=== PATIENT | male | born 1995 | race African-American/Black ===

== ENCOUNTER 2021-11-09 21:19 | Emergency (ER) | payer MEDICAID ==
[2021-11-09] MEDS: diphenhydrAMINE 25 MG CAPSULE PO STA ×2 (21:36→21:56)
[2021-11-09] MEDS: predniSONE 20 MG TABLET PO STA ×2 (21:36→21:57)
[2021-11-09] MEDS ORDERED: diphenhydrAMINE INJ 50 MG/ML VIAL IM STA (21:55)
[2021-11-09] MEDS ORDERED: DEXAMETHASONE 10 MG/ML VIAL IM STA (21:55)
--- NOTE | 2021-11-09 21:57 | ED Physician Documentation ---
History of Present Illness - Stated complaint Stated Complaint: ALLERGIC REACTION - Chief complaint Chief Complaint: Allergic Rx - History obtained from History obtained from: Patient - Additonal information Additional information: The patient comes to the emergency department chief complaint of his tongue being swollen. He states its been about an hour. He thinks he might of been exposed to nuts, to which she is allergic. No rash or itching. No throat swelling. No facial swelling. No other allergies that the patient knows of. No other complaints at this time. Review of Systems Ten Systems: 10 systems reviewed and negative Constitutional: reports: Reviewed and negative Eyes: reports: Reviewed and negative Ears: reports: Reviewed and negative Nose: reports: Reviewed and negative Throat: reports: Reviewed and negative Cardiac: reports: Reviewed and negative Respiratory: reports: Reviewed and negative GI: reports: Reviewed and negative : reports: Reviewed and negative Skin: reports: Reviewed and negative Musculoskeletal: reports: Reviewed and negative Neurologic: reports: Reviewed and negative Psychiatric: reports: Reviewed and negative Endocrine: reports: Reviewed and negative Immunocompromised: reports: Reviewed and negative PD PAST MEDICAL HISTORY - Allergies Allergies/Adverse Reactions: Allergies Allergy/AdvReac Type Severity Reaction Status Date / Time No Known Drug Allergies Allergy Verified 11/09/21 21:29 PD ED PE NORMAL - Vitals Vital signs reviewed: Yes - General General: No acute distress, Well developed/nourished, Other (Alert) - HEENT HEENT: Atraumatic, PERRL, EOMI, Moist mucous membranes, Pharynx benign (No edema, tonsils 1+ And symmetrical.), Other (No discernible tongue swelling. The patient when talking causes his tongue to protrude from his mouth, but otherwise, Tongue is retracted into the mouth and patient breathes comfortably.) - Neck Neck: Supple, no meningeal sign - Cardiac Cardiac: RRR, No murmur, Strong equal pulses - Respiratory Respiratory: No respiratory distress, Clear bilaterally, Other (No stridor) - Abdomen Abdomen: Soft, Non tender, Non distended - Derm Derm: Normal color, Warm and dry, No rash - Extremities Extremities: No deformity, No edema - Neuro Neuro: Alert and oriented X 3 - Psych Psych: Normal mood, Normal affect Results - Vitals Vitals: Vital Signs - 24 hr 11/09/21 11/09/21 11/09/21 21:27 22:13 22:43 Temperature 36.5 C Heart Rate 93 78 77 Respiratory 18 24 16 Rate Blood Pressure 136/82 H 135/83 H 112/65 O2 Saturation 97 95 94 11/09/21 22:58 Temperature 36.5 C Heart Rate 73 Respiratory 23 Rate Blood Pressure 112/65 O2 Saturation 96 Oxygen O2 Source Room air PD MEDICAL DECISION MAKING - ED course Complexity details: considered differential, d/w patient ED course: The patient was treated with Benadryl and Decadron and no development of any other symptoms was noted. The patient has some cognitive delay, and it was unclear to what extent this was playing in. His tongue did not appear edematous, nor did his throat. He had no facial swelling and no urticaria. His lungs were clear without wheezing. We have discussed the need to avoid any substances to which the patient is allergic. We have discussed the usual indications for return. Departure - Departure Disposition: 01 Home, Self Care Clinical Impression: Allergic reaction Qualifiers: Encounter type: initial encounter Qualified Code(s): T78.40XA - Allergy, unspecified, initial encounter Condition: Stable Instructions: ED Allergic Reaction General Other Comments: It is not clear whether you have actually had an allergic reaction or not, as your tongue does not appear swollen and the back your throat is very open. Additionally, your oxygen saturation is good and you have no rash. You are breathing comfortably without any evidence of your throat being closed off. At this point in time, you have been given doses of Benadryl and a steroid. He may take Benadryl at home if needed. Please return to the emergency department if you feel as though your breathing is worsening. Discharge Date/Time: 11/09/21 23:24
[2021-11-09 22:43] VITALS: BP 112/65
== END 2021-11-09 23:24 | disposition home or self-care (01) ==
LOC: ED 21:19
DX: T78.40XA Allergy, unspecified, initial encounter (principal)
CPT/HCPCS: 96372; 99282; 99283; J1200

== ENCOUNTER 2021-11-18 00:27 | Emergency (ER) | payer MEDICAID ==
[2021-11-18 00:42] VITALS: BP 126/81
--- NOTE | 2021-11-18 01:29 | XRAY Report ---
PROCEDURE: Knee 4 View RT INDICATIONS: Trauma TECHNIQUE: 3 views of the right knee were acquired. COMPARISON: None. FINDINGS: Bones: No fractures or dislocations. No suspicious bony lesions. Soft tissues: No joint effusion. No suspicious soft tissue calcifications. IMPRESSION: 1. No fracture or dislocation. Reviewed by: Juve Mix MD on 11/18/2021 1:28 AM PDT Approved by: Juve Mix MD on 11/18/2021 1:28 AM PDT Station ID: [id number]
[2021-11-18] MEDS ORDERED: IBUPROFEN 600 MG TABLET PO STA (01:50)
[2021-11-18] MEDS ORDERED: BACITRACIN ZINC OINT 1 PACKET TOP STA (01:50)
--- NOTE | 2021-11-18 01:53 | ED Physician Documentation ---
History of Present Illness - Stated complaint Stated Complaint: RT KNEE INJ - Chief complaint Chief Complaint: Trauma Ext - History obtained from History obtained from: Patient - Additonal information Additional information: 26-year-old man presents from [facility] house after tripping and falling onto the right knee with subsequent sudden onset pain that is aching, nonradiating, localized to the Outer part of the knee, worse with weightbearing, associated with abrasion to the kneecap. Denies other injury Review of Systems Skin: reports: Abrasion (s) Musculoskeletal: reports: Joint pain PD PAST MEDICAL HISTORY - Present Medications Home Medications: Ambulatory Orders Medication Instructions Recorded Confirmed Divalproex Sodium [Depakote ER] 500 mg PO DAILY 11/18/21 11/18/21 Prazosin [Minipress] 1 mg PO DAILY PM 11/18/21 11/18/21 Risperidone [Risperdal] 1 mg PO DAILY 11/18/21 11/18/21 Sertraline [Zoloft] 50 mg PO DAILY 11/18/21 11/18/21 - Allergies Allergies/Adverse Reactions: Allergies Allergy/AdvReac Type Severity Reaction Status Date / Time No Known Drug Allergies Allergy Verified 11/18/21 00:42 PD ED PE NORMAL - Vitals Vital signs reviewed: Yes - General General: Alert and oriented X 3, No acute distress, Well developed/nourished - Derm Derm: Normal color, Warm and dry, Other (Scattered abrasions to right patella) - Extremities Extremities: Other (Discomfort with range of motion of right knee. Mild swelling to lateral aspect of right knee. Nontender with valgus and varus pressure. 2+ BL DP pulses. normal sensation and movement) - Neuro Neuro: No motor deficit, No sensory deficit Results - Vitals Vitals: Vital Signs - 24 hr 11/18/21 00:39 Temperature 36 C L Heart Rate 85 Respiratory 18 Rate Blood Pressure 126/81 H O2 Saturation 97 Oxygen O2 Source Room air PD MEDICAL DECISION MAKING - ED course ED course: 26-year-old man presented with right knee pain and abrasion. X-ray noncontributory. Knee was cleaned, dressed, and Eugenio wrap applied. Symptomatic care discussed. Return precautions given. Departure - Departure Disposition: 01 Home, Self Care Clinical Impression: Knee pain Condition: Good Instructions: ED RICE Comments: You are seen in the emergency department for evaluation of knee pain. You have any breaks in the bone on x-ray. Please follow-up with a primary doctor and return to the emergency department if you have any new or worsening symptoms or other concerns.
== END 2021-11-18 01:55 | disposition home or self-care (01) ==
LOC: ED 00:27
DX: M25.561 Pain in right knee (principal); W01.0XXA Fall on same level from slipping, tripping and stumbling without subsequent striking against object, initial encounter
CPT/HCPCS: 73564; 99282; 99283; A9270

== ENCOUNTER 2022-02-13 18:40 | Emergency (ER) | payer MEDICAID, OTHER ==
[2022-02-13 19:37] VITALS: BP 122/70
== END 2022-02-13 20:15 | disposition left against medical advice (07) ==
LOC: ED 18:40
DX: Z53.21 Procedure and treatment not carried out due to patient leaving prior to being seen by health care provider (principal)
CPT/HCPCS: 87430

== ENCOUNTER 2022-02-15 23:47 | Emergency (ER) | payer MEDICAID, OTHER ==
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
[2022-02-16 00:39] LABS: BASOPHILS # (AUTO) 0.1 10^3/uL (0.0-0.1); BASOPHILS % (AUTO) 0.5 %; EOSINOPHILS # (AUTO) 0.3 10^3/uL (0.0-0.7); EOSINOPHILS % (AUTO) 3.3 %; HCT - HEMATOCRIT 43.5 % (42.0-52.0); HGB - HEMOGLOBIN 14.6 g/dL (14.0-18.0); LYMPHOCYTES # (AUTO) 3.3 10^3/uL (1.5-3.5); LYMPHOCYTES % (AUTO) 34.9 %; MEAN CORPUSCULAR HEMOGLOBIN 29.7 pg (27.0-31.0); MEAN CORPUSCULAR HGB CONC 33.6 g/dL (32.0-36.0); MEAN CORPUSCULAR VOLUME 88.4 fL (80.0-94.0); MEAN PLATELET VOLUME 10.9 fL (7.4-11.4); MONOCYTES # (AUTO) 0.9 10^3/uL (0.0-1.0); MONOCYTES % (AUTO) 9.5 %; NEUTROPHILS # (AUTO) 4.9 10^3/uL (1.5-6.6); NEUTROPHILS % (AUTO) 51.6 %; PLT - PLATELET COUNT 200 10^3/uL (130-450); RED BLOOD COUNT 4.92 10^6/uL (4.70-6.10); RED CELL DISTRIBUTION WIDTH 12.2 % (12.0-15.0); WHITE BLOOD COUNT 9.5 x10^3/uL (4.8-10.8)
[2022-02-16 00:56] LABS: ACETAMINOPHEN < 10 ug/mL (10-30); ALBUMIN 4.2 g/dL (3.2-5.5); ALBUMIN/GLOBULIN RATIO 1.2 (1.0-2.2); ALKALINE PHOSPHATASE 90 IU/L (42-121); ALT ALANINE AMINOTRANSFERASE 17 IU/L (10-60); AST ASPARTATE AMINOTRANSFERASE 21 IU/L (10-42); BILIRUBIN,TOTAL 0.7 mg/dL (0.2-1.0); BUN - BLOOD UREA NITROGEN 21 mg/dL (6-20); CALCIUM 9.2 mg/dL (8.5-10.3); CARBON DIOXIDE - CO2 24 mmol/L (21-32); CHLORIDE 103 mmol/L (101-111); CREATININE 0.9 mg/dL (0.6-1.2); ETOH - ETHANOL < 5.0 mg/dL; GFR - MDRD 126 (>89); GLUCOSE 102 mg/dL (70-100); LIPASE 31 U/L (22-51); POTASSIUM 3.7 mmol/L (3.5-5.0); SALICYLATE < 6.0 mg/dL; SODIUM 136 mmol/L (135-145); TOTAL PROTEIN 7.7 g/dL (6.7-8.2)
[2022-02-16 01:01] LABS: MUDS CUTOFF CONCENTRATIONS CUTOFF CONC BELOW:
[2022-02-16 01:05] LABS: BILIRUBIN,URINE NEGATIVE (NEGATIVE); GLUCOSE, URINE (UA) NEGATIVE (NEGATIVE); KETONES,URINE (UA) NEGATIVE (NEGATIVE); LEUKOCYTE ESTERASE, URINE NEGATIVE (NEGATIVE); NITRITE,URINE NEGATIVE (NEGATIVE); OCCULT BLOOD,URINE NEGATIVE (NEGATIVE); PH,URINE 6.5 PH (5.0-7.5); PROTEIN,URINE NEGATIVE (NEGATIVE); UROBILINOGEN,URINE 1 (NORMAL) E.U./dL (NORMAL)
[2022-02-16 01:06] LABS: CLARITY,URINE CLEAR (CLEAR)
[2022-02-16 01:15] LABS: AMPHETAMINE SCREEN,URINE NEGATIVE (NEGATIVE); BENZODIAZEPINES SCREEN, URINE NEGATIVE (NEGATIVE); COCAINE SCREEN URINE NEGATIVE (NEGATIVE); METHADONE SCREEN, URINE NEGATIVE (NEGATIVE); METHAMPHETAMINES SCREEN, URINE NEGATIVE (NEGATIVE); OPIATE SCREEN, URINE NEGATIVE (NEGATIVE); THC CANNABINOID SCREEN, URINE POSITIVE (NEGATIVE); TRICYCLIC ANTIDEPRESSANT,URINE NEGATIVE (NEGATIVE)
[2022-02-16 01:16] LABS: BARBITURATE SCREEN,UR NEGATIVE (NEGATIVE); OXYCODONE SCREEN, URINE NEGATIVE (NEGATIVE); PROPOXYPHENE SCREEN, URINE NEGATIVE (NEGATIVE)
[2022-02-16 06:20] LABS: CHLAMYDIA TRACHOMATIS DNA NEGATIVE (NEGATIVE); NEISSERIA GONORRHOEAE DNA NEGATIVE (NEGATIVE)
--- NOTE | 2022-02-16 11:56 | ED Physician Documentation ---
ED Addendum - Addendum Addendum: Patient signed out to me by overnight physician. She has been seen by social work. Will look for psychiatric placement. Patient is voluntary. 02/16/22 15:29 Patient has been accepted to [facility] and is voluntary. Patient has been calm and cooperative. Departure - Departure Disposition: 65 Psych Hosp/Unit DC/Xfer Clinical Impression: Suicidal thoughts Condition: Stable
[2022-02-16 18:09] VITALS: BP 105/52
[2022-02-17] MEDS ORDERED: DIVALPROEX ER 250 MG TABLET PO SCH (15:53)
== END 2022-02-16 20:09 ==
LOC: ED 23:47
DX: R45.851 Suicidal ideations (principal); Z20.822 Contact with and (suspected) exposure to COVID-19
CPT/HCPCS: 36415; 80053; 80306; 80307; 80320; 80329; 81001; 81003; 83690; 84443; 85025; 87086; 87491; 87591; 87661; 99285